=== PATIENT | female | born 1930 | race Caucasian/White ===

== ENCOUNTER 2017-04-05 11:21 | Inpatient (IN) | payer MEDICARE ==
[2017-04-05] MEDS ORDERED: Ondansetron 4 MG Tab.DIS PO PRN (12:12)
[2017-04-05] MEDS ORDERED: Sodium Chloride 0.9% 10 ML Syringe FLUSH PRN (12:12)
[2017-04-05] MEDS: ceFAZolin 1 GM Vial IVPUSH SCH ×2 (12:51→20:21)
[2017-04-05] MEDS: Sodium Chloride 0.9% 1,000 ML IV SCH (12:51)
[2017-04-05] MEDS: Vancomycin 125 MG/2.5 ML Oral Solution 2.5 ML UD Cup PO SCH ×3 (12:51→20:21)
[2017-04-05] MEDS ORDERED: Albuterol 8 GM Inhaler INH PRN (13:25)
[2017-04-05] MEDS: Metoprolol Tartrate 50 MG Tab PO SCH (20:21)
[2017-04-05] MEDS: Enoxaparin 30 MG/0.3 ML Syringe SUBCUT SCH (20:21)
[2017-04-05] MEDS: Gabapentin 100 MG Cap PO SCH (20:22)
[2017-04-05] MEDS: Montelukast 10 MG Tab PO SCH (20:22)
[2017-04-05] MEDS: BUDESONIDE INH SCH (20:23)
[2017-04-05] MEDS: CYCLOSPORINE EYEBOTH SCH (20:23)
[2017-04-05] MEDS: FORMOTEROL INH SCH (20:23)
[2017-04-05] MEDS: [UNRECOGNIZED DRUG - OTHER] EYEBOTH SCH (20:24)
[2017-04-05] MEDS: PROPYLENE GLYCOL EYEBOTH SCH (20:24)
[2017-04-05] MEDS: Acetaminophen 650 MG Tab.ER PO PRN (21:16)
[2017-04-05] MEDS ORDERED: Hydroxyurea 500 MG Cap PO ONE (21:30)
--- NOTE | 2017-04-06 00:30 | HP ---
HISTORY OF PRESENT ILLNESS: The patient is an 86-year-old seen today in the clinic due to not feeling well. The patient was just seen and treated for cellulitis of the left ankle with Ceftin 500 mg twice daily for 1 week starting on 03/25. She said she just took her last dose last night. She has been on increasing Hydrea for essential thrombocytosis since earlier this month. She otherwise has been off her methotrexate and sulfasalazine for rheumatoid arthritis due to these infections. Prior to this, she had a UTI on 03/18 with E. coli and was treated with Macrobid, but she states she can tell it is coming back. She had diarrhea, at least 4 to 5 stools last night, loose and very watery and 3 already this morning. She has some abdominal discomfort. She has no fever, no chills. She has never had C. diff before. Her ankle is not painful. It just feels a little bit dry. Her redness is resolving in the leg. She has a cough still. She has known asthma. She has been on inhalers, but she is not short of breath. She just feels some phlegm down in her deeper throat and chest area. Otherwise, she has been able to eat and drink okay so far. ALLERGIES: Penicillin, testosterone. MEDICATION: List is reviewed. I will just mention that there is multiple vitamins that are on file and I am not going to repeat all of them today. Singulair 10 mg at bedtime, Hydrea 1 tablet twice daily, Salagen 1 tablet 3 times a day, Ventolin as needed inhaler, Neurontin 200 mg 3 times a day, levothyroxine 75 mcg daily, Symbicort 2 puffs twice a day, prednisone 5 mg daily, Effexor 37.5 mg daily, vitamin D, B12, calcium D, vitamin K, folic acid, cranberry, aspirin 81 mg daily, Tylenol as needed, potassium 99 daily, methotrexate 5 tablets on Fridays, and sulfasalazine 1000 mg twice a day. Again, this has been on hold for about 1 month. SOCIAL HISTORY: The patient is . She lives at home by herself. She is a nonsmoker and nondrinker. Her daughter is a nurse at the hospital. Surgically, she has had a radical mastectomy, hysterectomy, cholecystectomy, cataract surgery with extraction, appendectomy. PAST MEDICAL HISTORY: Includes paroxysmal SVTs, spinal stenosis, coronary artery disease, nonobstructive, essential thrombocythemia, hypothyroidism, macrocytosis probably from Hydrea, diverticulosis, gastritis in 2009, GERD with chronic cough, hot flashes, Effexor helps. She takes that, that is what she takes for IBS. 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 coli resistant to Bactrim. FAMILY HISTORY: The patient's parents are both . She has a daughter and son, both living. Father did have cancer. Mother had heart attack and diabetes. Father's cancer was in the lung. Otherwise, brother had throat and another brother had prostate cancer and a sister had spine cancer. REVIEW OF SYSTEMS: General: She has not had any recent fever or chills. She has had a little bit of a decreased appetite with feeling sick, but no weight changes. HEENT: No sore throat. No trouble swallowing. Cardiac: No chest pain. No palpitations. Respiratory: No shortness of breath or wheezing, but she has had a cough. Abdominal: As stated in HPI. : She has had some burning with urination, suprapubic pain, some intermittent back pain, but no flank pain. Otherwise, all systems reviewed and found to be negative unless otherwise stated. PHYSICAL EXAMINATION: Vital Signs: Coming from the clinic, weight 176 pounds, blood pressure 136/80, respiratory rate was noted to be 18, pulse 75, O2 saturation of 96 on room air, temperature 96.7. General: She was in no acute distress. Heart: Regular rate and rhythm. S1, S2 without murmur. Lungs: Sounds are clear to auscultation bilaterally without crackles or wheezes. Abdomen: Positive bowel sounds. It is soft, but there is tenderness especially in the suprapubic area. There are no rebound and no guarding. No liver or splenic enlargement. Extremities: Warm and dry. There is no edema. The left ankle is examined. There is just slight swelling still there, but no effusion. Minimal redness but no warmth. Mental status: She is alert and orientated x3. HEENT: Shows her oral mucosa to be moist without erythema or exudate. LABORATORY DATA: We will do urine first, greater than 50 WBCs, 30-49 RBCs, white blood cell clumps present. CBC shows white count 14.9, hemoglobin 13.4, MCV 109, platelets 679. ESR actually not that elevated at 4. Comprehensive panel; glucose 95, BUN 12, creatinine 0.72, sodium 139, potassium 4.4, chloride 104, bicarb 24, creatinine was 0.72. BUN was 12, alkaline phosphatase 56, AST 16, ALT 18, bilirubin 0.3, lipase not elevated, it was in the 300s. Abdominal x-ray and chest x-ray did not show any acute infiltrates or no small bowel obstruction. ASSESSMENT: 1. Urinary tract infection, recurrent with recent treatment. 2. Diarrhea with recent antibiotic use. She is not on any stool softeners. Given the fact the patient needs to be treated for both the UTI and presumably C. diff, we will admit her to the hospital with IV fluids. She has already had something like 9 bowel movements in less than a 24-hour period. I expect this could definitely get worse over the weekend that coupled with the fact that she is immunosuppressed for treatments for rheumatoid arthritis and she is also on Hydrea. 3. Essential thrombocythemia. We will continue her Hydrea. We will repeat blood counts tomorrow. 4. Rheumatoid arthritis. I am going to continue to hold the sulfasalazine and methotrexate. We will continue prednisone 5 mg daily. 5. Known asthma without exacerbation. We will continue her on home inhalers. 6. Hypothyroidism. We will continue levothyroxine. 7. History of hot flashes. We will continue Effexor. PLAN: At this point, the patient is admitted to [facility] over at [facility] for IV fluids, IV Ancef. Based on her last urine culture, we will culture the urine as well again. We will also place her on vancomycin 125 mg q.i.d. and send the sample off for testing. Anticipate she will need at least 2 nights of admission to further optimize her care. For DVT prophylaxis, I am going to put her on Lovenox. Given her age, even though her renal function is normal, I am going to order 30 mg daily. She is a code level 1. I will follow her through the weekend. MKA: 04/05/2017 17:31:15 MODL: 04/06/2017 00:24:37 /[id number]
[2017-04-06] MEDS: Sodium Chloride 0.9% 1,000 ML IV SCH (02:28)
[2017-04-06] MEDS: ceFAZolin 1 GM Vial IVPUSH SCH ×3 (03:43→20:03)
[2017-04-06] MEDS: Levothyroxine 75 MCG Tab PO SCH (06:29)
[2017-04-06] MEDS ORDERED: [UNRECOGNIZED DRUG - REMARK] PO SCH (08:00)
[2017-04-06 08:01] LABS: CHLORIDE,CL 110 mmol/L (98-107); SODIUM,NA 146 mmol/L (136-145)
[2017-04-06] MEDS: BUDESONIDE INH SCH ×2 (08:19→20:07)
[2017-04-06] MEDS: FORMOTEROL INH SCH ×2 (08:19→20:07)
[2017-04-06] MEDS: CYCLOSPORINE EYEBOTH SCH ×2 (08:20→20:07)
[2017-04-06] MEDS: Calcium Carbonate/Vitamin D3 1250 MG-200 Unit Tab PO SCH (08:20)
[2017-04-06] MEDS: Aspirin 81 MG Tab.EC PO SCH (08:21)
[2017-04-06] MEDS: Metoprolol Tartrate 50 MG Tab PO SCH ×2 (08:21→20:06)
[2017-04-06] MEDS: Venlafaxine 37.5 MG Cap.ER PO SCH (08:21)
[2017-04-06] MEDS: Hydroxyurea 500 MG Cap PO SCH (08:21)
[2017-04-06] MEDS: predniSONE 5 MG Tab PO SCH (08:27)
[2017-04-06] MEDS: Gabapentin 100 MG Cap PO SCH ×3 (08:27→20:05)
[2017-04-06] MEDS: PROPYLENE GLYCOL EYEBOTH SCH ×2 (08:28→20:07)
[2017-04-06] MEDS: [UNRECOGNIZED DRUG - OTHER] EYEBOTH SCH ×2 (08:28→20:07)
[2017-04-06] MEDS: Vancomycin 125 MG/2.5 ML Oral Solution 2.5 ML UD Cup PO SCH ×4 (08:28→20:05)
[2017-04-06] MEDS: PILOCARPINE 5 MG PO SCH ×3 (10:42→20:08)
[2017-04-06] MEDS: Acetaminophen 650 MG Tab.ER PO PRN ×2 (10:42→20:05)
--- NOTE | 2017-04-06 11:29 | PN ---
Progress Note for DAR[facility] Date: 04/06/2017 Room #: VM.204 SUBJECTIVE: This is hospital day #2 on an 86-year-old admitted with a complicated UTI, which is recurrent, along with diarrhea after antibiotics with Ceftin, concern for C. diff, with abdominal pain and leukocytosis. The patient's white count improved slightly from 14,000 to 12.1. She has been afebrile. She still has some abdominal discomfort, but denies any severe pain. No burning with urination. No cough. No trouble breathing. She had noted some salty taste in her mouth. She is concerned about her blood pressures running higher, although, she has no history of hypertension. Therefore, the nurse did a manual recheck and it was improved to 142/80. She does have a mild headache. The patient has also not received her pilocarpine, which she takes for her eyes, as it is not available at the hospital. OBJECTIVE: Vital Signs: Temperature 98.9, pulse 79, blood pressure 142/80, respiratory rate 22, and O2 of 94 on room air. General: She is in no acute distress. Heart: Regular rate and rhythm. S1, S2 without murmur. Lungs: Lungs sounds are clear to auscultation bilaterally without crackles or wheezes. Abdomen: Positive bowel sounds. It is soft. There is some mild left lower quadrant tenderness. Extremities: Warm and dry. The left ankle that originally had cellulitis, there is no further redness. There is some tenderness still to palpation, just some mild. Trace edema when compared to the right. She has normal ankle range of motion without severe pain. She feels it could be related to her rheumatoid arthritis. Otherwise, she is eating and drinking okay. She did have a semiformed stool this morning. She did have at least one loose stool yesterday, which was sent for C. diff testing. She had excellent urine output at 1.4 L. LABORATORY DATA: White count 12.1, hemoglobin 12.1, and platelets 675,000. Sodium 146, potassium 4, chloride 110, bicarb 31, BUN 9, creatinine 0.8, calcium 8.3, and glucose 85. ASSESSMENT: 1. Urinary tract infection with E. coli. She is on IV Ancef. Her symptoms are improving. 2. Diarrhea after IV antibiotics, requiring further IV antibiotics. Concern would be for C. diff. She is on oral vancomycin. This seems to be stable. 3. Essential thrombocythemia. She is on Hydrea. We will repeat her blood counts tomorrow. Things appear stable. 4. Rheumatoid arthritis. She is off her home medications of sulfasalazine and methotrexate due to infections. She is on prednisone 5 mg daily. 5. Known asthma without exacerbation. 6. Hypothyroidism. 7. History of hot flashes. PLAN: At this point, the patient will continue acute cares with IV Ancef. She will continue oral vancomycin. We are awaiting C. diff return. If negative, then she will be able to go home without any further vancomycin. She will likely need to go on Keflex to treat her UTI. We will try to get her up and moving in the singh today. Due to her mild hypernatremia, I am going to switch her over to half-normal saline. I anticipate that she will need at least another 1 to 2 nights of acute stay before being discharged home potentially with Home Health. CASSANDRAA: 04/06/2017 10:51:48 MODL: 04/06/2017 11:17:46 /[id number]
[2017-04-06] MEDS: Sodium Chloride 0.45% 1,000 ML IV SCH (11:32)
[2017-04-06] MEDS ORDERED: PILOCARPINE 5 MG PO SCH (12:00)
[2017-04-06] MEDS: Enoxaparin 30 MG/0.3 ML Syringe SUBCUT SCH (20:06)
[2017-04-06] MEDS: Montelukast 10 MG Tab PO SCH (20:06)
[2017-04-07] MEDS: Sodium Chloride 0.45% 1,000 ML IV SCH (00:43)
[2017-04-07] MEDS: ceFAZolin 1 GM Vial IVPUSH SCH (03:49)
[2017-04-07] MEDS: Levothyroxine 75 MCG Tab PO SCH (06:06)
[2017-04-07] MEDS: BUDESONIDE INH SCH ×2 (08:08→21:58)
[2017-04-07] MEDS: FORMOTEROL INH SCH ×2 (08:08→21:58)
[2017-04-07] MEDS: Calcium Carbonate/Vitamin D3 1250 MG-200 Unit Tab PO SCH (08:09)
[2017-04-07] MEDS: Metoprolol Tartrate 50 MG Tab PO SCH ×2 (08:10→21:59)
[2017-04-07] MEDS: Venlafaxine 37.5 MG Cap.ER PO SCH (08:10)
[2017-04-07] MEDS: CYCLOSPORINE EYEBOTH SCH ×2 (08:10→22:02)
[2017-04-07] MEDS: PILOCARPINE 5 MG PO SCH ×3 (08:11→22:01)
[2017-04-07] MEDS: Gabapentin 100 MG Cap PO SCH ×3 (08:11→21:58)
[2017-04-07] MEDS: predniSONE 5 MG Tab PO SCH (08:12)
[2017-04-07] MEDS: PROPYLENE GLYCOL EYEBOTH SCH ×2 (08:12→22:03)
[2017-04-07] MEDS: [UNRECOGNIZED DRUG - OTHER] EYEBOTH SCH ×2 (08:12→22:03)
[2017-04-07] MEDS: Hydroxyurea 500 MG Cap PO SCH (08:13)
[2017-04-07] MEDS: Aspirin 81 MG Tab.EC PO SCH (08:13)
[2017-04-07] MEDS ORDERED: Pantoprazole 40 MG Vial IVPUSH ONE (09:34)
[2017-04-07] MEDS ORDERED: Amoxicillin/Clavulanate K 875-125 MG Tab PO SCH (09:45)
[2017-04-07 10:24] LABS: CHLORIDE,CL 105 mmol/L (98-107); SODIUM,NA 140 mmol/L (136-145)
[2017-04-07] MEDS: Clobetasol 0.05% Crm 30 GM Tube TOP SCH ×2 (11:00→22:02)
--- NOTE | 2017-04-07 11:08 | PN ---
Progress Note for DARREL RIVERS Date: 04/07/2017 Room #: .204 SUBJECTIVE: This is hospital day #3 on an 86-year-old admitted with diarrhea and a UTI, failing outpatient treatments. The patient started having burning with urination this morning and urgency after it had gotten better. She had been on Keflex now day #3. Her E. coli was also sensitive to Augmentin. She also has some generalized abdominal pain and began having some dark colored stools at least 3 since yesterday. She does have a history of gastritis back in 2008. She has not been on any PPIs. She does also have a history of diverticulosis and IBS. Otherwise, white count was improving yesterday. She has been afebrile. Breathing has been good. She has not been lightheaded or dizzy upon standing. Her hemoglobin yesterday was 12.1, which was down just slightly from her clinic reading the day before at 13.4, but some of this was felt to be hemodilution. Her ESR in the clinic was 4. Her C. diff testing did come back negative. OBJECTIVE: Vital Signs: Her temperature is 98, pulse 77, blood pressure 173/67. Should be noted in the evenings, her blood pressures were excellent like 138/45. Yesterday when blood pressure was recheck manually it improved. Respiratory rate 18, O2 93 on room air. General: She is in no acute distress. Heart: Regular rate and rhythm. S1, S2 without murmur. Respiratory: Lungs sounds are clear to auscultation bilaterally without crackles or wheezes. Abdomen: Has positive bowel sounds, soft with generalized tenderness. She also has some pain over the right lower ribs and flank area, but I did not feel this was any renal kidney-type pain. She tells me "I have had a long time." : She has atrophic vaginitis changes. She used to be on Premarin, but she does feel like the pain is coming from deeper inside like a bladder infection. No discharge to suggest yeast. LABORATORY DATA: Lab work from today is pending. ASSESSMENT: 1. Escherichia coli urinary tract infection, on IV Ancef. Her symptoms have returned. I do feel it is too soon to repeat her UA. We will switch her over to oral Augmentin. This would cover for other abdominal infections. However, I do not feel her symptoms are severe enough to warrant a CT to rule out diverticulitis at this point. 2. Possible melena with loose stools. We will check it for blood. We will hold further Lovenox injections. We will check a hemoglobin today. C. diff was negative. We will stop the vancomycin. 3. Essential thrombocythemia. She is on Hydrea. 4. Rheumatoid arthritis. She is on prednisone 5 mg daily. Her other medications are on hold. 5. Known asthma without exacerbation. 6. Hypothyroidism. 7. History of hot flashes. 8. History of gastritis. I will give her a dose of IV Protonix. PLAN: At this point, we will check labs today. We will stop the IV Ancef. We will give her some IV Protonix. We will place her on oral Augmentin. We will get her up and working with therapies tomorrow. Anticipate that if blood counts remain stable and no signs of GI bleeding, she will be discharged home tomorrow with home health. For DVT prophylaxis, Lovenox will be held until we rule out GI bleeding. PRUDENCIO: 04/07/2017 09:53:08 MODL: 04/07/2017 11:05:19 /[id number]
[2017-04-07] MEDS: Cephalexin 500 MG Cap PO SCH ×4 (11:14→23:53)
[2017-04-07] MEDS: metroNIDAZOLE 500 MG Tab PO SCH ×2 (11:15→18:52)
[2017-04-07] MEDS: Acetaminophen 650 MG Tab.ER PO PRN ×2 (12:14→21:59)
[2017-04-07] MEDS: Montelukast 10 MG Tab PO SCH (21:58)
[2017-04-08] MEDS: metroNIDAZOLE 500 MG Tab PO SCH (02:30)
[2017-04-08] MEDS: Cephalexin 500 MG Cap PO SCH (05:48)
[2017-04-08] MEDS: Levothyroxine 75 MCG Tab PO SCH (06:01)
[2017-04-08 06:20] VITALS: BP 153/58
[2017-04-08 07:29] LABS: CHLORIDE,CL 106 mmol/L (98-107); SODIUM,NA 140 mmol/L (136-145)
[2017-04-08] MEDS: predniSONE 5 MG Tab PO SCH (07:51)
[2017-04-08] MEDS: Venlafaxine 37.5 MG Cap.ER PO SCH (07:51)
[2017-04-08] MEDS: Aspirin 81 MG Tab.EC PO SCH (07:51)
[2017-04-08] MEDS: Metoprolol Tartrate 50 MG Tab PO SCH (07:52)
[2017-04-08] MEDS: Calcium Carbonate/Vitamin D3 1250 MG-200 Unit Tab PO SCH (07:52)
[2017-04-08] MEDS: Gabapentin 100 MG Cap PO SCH (07:52)
[2017-04-08] MEDS: Clobetasol 0.05% Crm 30 GM Tube TOP SCH (07:53)
[2017-04-08] MEDS: BUDESONIDE INH SCH (07:55)
[2017-04-08] MEDS: FORMOTEROL INH SCH (07:55)
[2017-04-08] MEDS: PILOCARPINE 5 MG PO SCH (07:55)
[2017-04-08] MEDS: CYCLOSPORINE EYEBOTH SCH (07:55)
[2017-04-08] MEDS ORDERED: Hydroxyurea 500 MG Cap PO SCH (08:00)
--- NOTE | 2017-04-09 10:23 | DISCH ---
PRIMARY DISCHARGE DIAGNOSES: 1. Complicated urinary tract infection, which is recurrent and failed outpatient antibiotics with culture from the clinic growing Escherichia coli on 03/18/2017 with newest culture pending. Blood cultures negative, resolving with Keflex. 2. Abdominal pain, long-standing, right lower quadrant with previous surgeries including hysterectomy, appendectomy, and cholecystectomy. No hematuria. No blood in her stool. 3. Diarrhea, ruled out for Clostridium difficile with negative Clostridium difficile, improving. 4. Immunosuppression due to rheumatoid arthritis. Methotrexate and sulfasalazine were actually on hold for the last month and she is on prednisone 5 mg daily. 5. Macrocytosis due to Hydrea. 6. Essential thrombocythemia on Hydrea with improved platelets down to 595 on discharge. 7. Paroxysmal supraventricular tachycardia. 8. Spinal stenosis. 9. Coronary artery disease, nonobstructive. 10.Hypothyroidism. 11.History of diverticulosis back on colonoscopy in 2012. 12.Gastritis with esophagogastroduodenoscopy showing in 2008. 13.Gastroesophageal reflux disease. 14.Hot flashes on Effexor. 15.Irritable bowel syndrome. 16.History of cerebrovascular accident. 17.Cerebellar stroke seen on MRI, but no clinical strokes. 18.Osteopenia. 19.Reactive airway disease with new onset asthma, stable. 20.History of carpal tunnel syndrome. 21.Recurrent urinary tract infections, dating back to even a 63 years ago. REASON FOR ADMISSION: On the date of admission, this 86-year-old female, who came into the clinic. She had been feeling poorly. She had been treated for left lower extremity cellulitis on the with Ceftin and began having significant amounts of diarrhea after finishing her antibiotics. She had also been in on the for UTI and was treated with Macrobid and felt like her symptoms are coming back. She had no fever or chills, but had some suprapubic abdominal pain, poor appetite, and weakness. She was admitted to [facility], placed on IV fluids and IV antibiotics of Ancef. She was placed on oral vancomycin. Pending her C. diff culture, which did come back negative, then her stools changed over to black stools. We gave her some IV Protonix 1 dose and held her Lovenox. She had no further stools that were concerning for blood. Her hemoglobin stayed quite stable and was up to 12.9 on discharge. Her white count that was 14,000 on admission did improve down to 12,000. On the day prior to discharge, she was switched over from IV Ancef to oral Keflex, which she was tolerating. Because of her abdominal discomfort and history of diverticulosis, we did add Flagyl as she is allergic to penicillin. Otherwise, her UTI was resistant to Cipro and Bactrim on her previous culture. Therefore, those antibiotics were not used and we are still awaiting this culture results. Otherwise, she also had some vaginal and vulvar irritation. We started her on some clobetasol cream and she did use Premarin previously. Otherwise, she was breathing good. She was not having any issues with cough. She was feeling better. She was felt that she was stable for discharge. DISCHARGE PLANS AND INSTRUCTIONS: She is going to recheck in the clinic on 04/18/[address] Cruz at 3:00 p.m. We will do a CBC at that visit. Given her longstanding abdominal pain and right flank pain for several months with recurrent urinary tract infections, I am going to get a CT of her abdomen and pelvis to evaluate this. Methotrexate and sulfasalazine will also be on hold until her followup visit. We will try longer course of the Keflex q.i.d. x10 days and Flagyl t.i.d. x10 days. We will continue the clobetasol for now and likely start her on Premarin cream again in the office. PHYSICAL EXAMINATION: Vital Signs: Discharging vitals; temperature 97.4, pulse 86, blood pressure 153/58, respiratory rate 18, and O2 of 95% on room air. It should be noted a couple morning she did have some higher readings up to the 170s. These were repeated manually and were better. She was not started on blood pressure pills and has no history of hypertension. General: She was in no acute distress. Heart: Regular rate and rhythm. S1, S2 without murmur. Lungs: Sounds are clear to auscultation bilaterally without crackles or wheezes. Abdomen: Positive bowel sounds. Soft, mild tenderness in the right lower quadrant, but no masses. No rebound. No guarding. Extremities: Warm and dry. No edema. The left ankle had completely resolved from any redness and had normal range of motion. No warmth. Mental Status: Alert and orientated x3. Greater than 30 minutes spent on the discharge process. MKA: 04/08/2017 13:08:00 MODL: 04/09/2017 10:12:52 /[id number]
== END 2017-04-08 09:35 | disposition home or self-care (01) | DRG 690 ==
LOC: VM.MS 11:50
PROVIDERS: ADMIT Internal Medicine; ATTEND Internal Medicine
DX: N39.0 Urinary tract infection, site not specified (principal); K52.1 Toxic gastroenteritis and colitis; I47.1 Supraventricular tachycardia; D69.3 Immune thrombocytopenic purpura; E87.0 Hyperosmolality and hypernatremia; T36.95XA Adverse effect of unspecified systemic antibiotic, initial encounter; J45.909 Unspecified asthma, uncomplicated; Z88.0 Allergy status to penicillin; Z88.8 Allergy status to other drugs, medicaments and biological substances; Z79.899 Other long term (current) drug therapy; I25.10 Atherosclerotic heart disease of native coronary artery without angina pectoris; E03.9 Hypothyroidism, unspecified; Z86.73 Personal history of transient ischemic attack (TIA), and cerebral infarction without residual deficits; M06.9 Rheumatoid arthritis, unspecified; B96.20 Unspecified Escherichia coli [E. coli] as the cause of diseases classified elsewhere; K29.70 Gastritis, unspecified, without bleeding; R10.31 Right lower quadrant pain
CPT/HCPCS: 36415; 80048; 80053; 82274; 85025; 87493; 97161-GP; A9270-GY; C9113; J0690; J1650; J7030